=== PATIENT | female | born 1980 | race Caucasian/White ===

== ENCOUNTER 2021-04-07 15:20 | Inpatient (IN) | payer MEDICARE, MEDICAID ==
[2021-04-07] MEDS ORDERED: diphenhydrAMINE 25 MG CAP PO STA (18:48)
[2021-04-07] MEDS ORDERED: HYDROcodone/APAP 5-325MG 1 EACH TAB PO STA (18:48)
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
[2021-04-07 19:51] LABS: Appearance,Urine Clear (Clear); Bilirubin,Urine Negative (Negative); Blood,Urine Negative (Negative); Color,Urine Yellow; Glucose,Urine (UA) Negative (Negative); Ketones,Urine Negative (Negative); Leukocyte Esterase,Urine Negative (Negative); Nitrite,Urine Negative (Negative); Protein,Urine Negative (Negative); Specific Gravity,Urine 1.011 (1.001-1.035); Urobilinogen,Urine <2.0 mg/dL (<2.0)
[2021-04-07 19:55] LABS: Basophils % (A) 0 %; Eosinophils # (A) 0.1 k/uL (0-0.7); Eosinophils % (A) 1 %; HCT 41.5 % (34.0-46.0); HGB 14.1 gm/dL (11.4-16.0); Lymphocytes % (A) 27 %; MCH 30.9 pg (25.0-35.0); MCV 90.8 fL (80.0-100.0); Mean Platelet Volume 7.3; Monocytes # (A) 0.3 k/uL (0-1.0); Monocytes % (A) 4 %; Neutrophils # (A) 4.9 k/uL (1.3-7.7); Neutrophils % (A) 67 %; Platelet Count 399 k/uL (150-450); RBC 4.57 m/uL (3.80-5.40); RDW 14.1 % (11.5-15.5); WBC 7.3 k/uL (3.8-10.6)
[2021-04-07 20:01] LABS: ALT 56 U/L (4-34); AST 59 U/L (14-36); African American GFR (CKD) >90 (>60 ml/min/1.73 sqM); Alcohol <10 mg/dL; Alkaline Phosphatase 110 U/L (38-126); Amphetamine Screen,Urine Detected (NotDetected); Anion Gap 12 mmol/L; Barbiturate Screen,Urine Not Detected (NotDetected); Benzodiazepines Screen,Urine Not Detected (NotDetected); Blood Urea Nitrogen 15 mg/dL (7-17); Calcium 10.2 mg/dL (8.4-10.2); Carbon Dioxide 25 mmol/L (22-30); Chloride 103 mmol/L (98-107); Cocaine Screen,Urine Not Detected (NotDetected); Glucose 93 mg/dL (74-99); Methadone Screen, Urine Not Detected (NotDetected); Non-African American GFR(CKD) >90 (>60 ml/min/1.73 sqM); Opiate Screen,Urine Not Detected (NotDetected); Oxycodone Screen, Urine Not Detected (NotDetected); Phencyclidine Screen,Urine Not Detected (NotDetected); Sodium 140 mmol/L (137-145); Total Bilirubin 0.8 mg/dL (0.2-1.3); Total Protein 7.9 g/dL (6.3-8.2); Tricyclic Antidepressant,Urine Not Detected (NotDetected); Urn Cannabinoid Scrn Not Detected (NotDetected)
--- NOTE | 2021-04-07 20:17 | XR ---
EXAMINATION TYPE: XR mandible limited <4V DATE OF EXAM: 04/07/2021 COMPARISON: NONE HISTORY: Left sided jaw pain TECHNIQUE: 2 views FINDINGS: Mandibular ring is intact. Maxilla appears intact. I see no fracture. IMPRESSION: No fracture seen.
--- NOTE | 2021-04-07 20:18 | XR ---
EXAMINATION TYPE: XR Hip LT and AP Pelvis DATE OF EXAM: 04/07/2021 COMPARISON: NONE HISTORY: Hip pain TECHNIQUE: 3 views FINDINGS: Pelvic ring appears intact. Proximal left femur and hip joint appear normal. Hip joint spac es are normal. There is posterior fusion surgery in the lower lumbar spine. Sacroiliac joints are int act. IMPRESSION: Negative pelvis and left hip exam.
[2021-04-08] MEDS ORDERED: LORazepam 2 MG/ML INJ IM STA (01:09)
[2021-04-08] MEDS ORDERED: diphenhydrAMINE 50 MG/ML 1 ML VIAL IM STA (01:09)
[2021-04-08] MEDS ORDERED: diphenhydrAMINE 50 MG/ML 1 ML VIAL IVP STA (02:13)
[2021-04-08] MEDS ORDERED: LORazepam 2 MG/ML INJ IV STA (02:14)
[2021-04-08] MEDS ORDERED: MAG HYDROX/AL HYDROX/SIMETH 30 ML CUP PO PRN (02:25)
[2021-04-08] MEDS ORDERED: MAGNESIUM HYDROXIDE 2,400 MG/10 ML CUP PO PRN (02:25)
[2021-04-08] MEDS ORDERED: LORazepam 2 MG/ML INJ IM PRN (02:29)
[2021-04-08] MEDS ORDERED: OLANZapine 10 MG VIAL IM PRN (02:30)
[2021-04-08] MEDS ORDERED: OLANZapine 5 MG TAB PO PRN (02:30)
--- NOTE | 2021-04-08 04:33 | P.PN ---
Progress Note - Text Progress Note Date: 04/08/21 notified of new patient by RN, however, patient inappropriate for evaluation at this time due to acute psychosis and being medicated in the EC
[2021-04-08] MEDS: LEVOTHYROXINE 25 MCG TAB PO SCH (05:34)
[2021-04-08] MEDS ORDERED: NICOTINE 14MG/24HR PATCH TRANSDERM SCH (09:00)
--- NOTE | 2021-04-08 10:37 | P.HP ---
Psychiatric H&P - . H&P Date: 04/08/21 History & Physical: IDENTIFYING DATA: Pamela is a 40-year-old female admitted to the psychiatric unit involuntarily. A nurse practitioner completed a Petition read "Pamela is very paranoid. [facility] our trying to poison her and sex traffic her. Has been helping hot to [facility]. Preoccupied with health illness from years ago. HISTORY OF PRESENT ILLNESS: I reviewed the medical information interviewed the patient. She was difficult to interview and that her speech and thinking was digressive and circumstantial. Apparently the [facility] Department brought her to the [facility] [place] after she refused to leave a local hotel. She paid for one night at the [facility] and when she did leave after the second night management called the [facility] Department to remove her from the premises. She gave an alternate explanation of events where she had "overslept" and blamed the hotel management for not awaking her and notified her of the time when she should have checked out of the hotel. She is homeless and lives from [facility] to [facility]. Prior to coming to the [facility] she has [facility] for on specified period of time. She talked about looking for a women halfway in [facility] but left the halfway parking lot when she believed she saw a car that she believed belonged to a former girlfriend whom she alleged was involved with illegal activities. I was unable to obtain a clear and coherent explanation why she decided to drive from [facility] to the [facility]. She talked at length about inspecting the [place] along [facility] and discovering aa "suspicious" chain link fence. 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 She also talked about having contact with her knowledge of people who were involved in illegal activities. 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 She was preoccupied by her health and complained about several health related problems including pains and discomfort. Because of her somatic complaints she received a hip and shoulder x-ray when she was in the emergency department (both studies were normal). She digresses frequently to her past experience with mental health and mental health treatment and repeatly denied that she needed psychotropic medications. She alleged that she was diagnosed with lupus and explained that "people with lupus" cannot be prescribed psychotropic m edications. She denied experiencing auditory, visual or olfactory hallucinations. She denied rinsing thought insertion, thought broadcasting or thought control. PAST PSYCHIATRIC HISTORY: She is guarded about her past psychiatric treatment. She acknowledged several past psychiatric hospitalizations. She refused to talk about the hospitalizations are when she was last admitted to a psychiatric hospital. She meets with the psychiatrist in [facility], Jones Figueroa who prescribes her psychostimulants and Vistaril. She had 1 suicide attempt in 2003. Apparently she is been diagnosed with ADHD because her outpatient treatment and close prescription of psychostimulants. PAST MEDICAL HISTORY: I difficult time obtaining a coherent past medical history but she made reference to having multiple medical problems, multiple surgeries including nerve root block, bone marrow hip graft and and endometrial ablation. ALLERGIES: Ketorolac, acetaminophen, Haldol, hydrocodone, ibuprofen SUBSTANCE USE HISTORY: She denied history of substance use problems. She denied that she had been involved in substance abuse treatment. FAMILY PSYCHIATRIC/SUBSTANCE USE HISTORY: Family history of mental illness LEGAL HISTORY: She denied a history of legal problems. SOCIAL HISTORY: Her parents when she was 6 years old. She has 1 biological brother and 2 step siblings. She left school at some point during high school but eventually received a GED. She was in 2017. She has 2 children ages 23 and 13. She has no contact with her children and talked about "the Ship [employer]" taken the children from her. She is currently unemployed and receives Social Security disability. She has been homeless apparently since approximately 2017 and her 2019. MENTAL STATUS EXAM: She presented as a mildly obese casually groomed 40-year-old female who was pleasant on approach. She made eye contact and attended to the interview. She had no distinguishing features or prominent physical abnormalities. She had a blunted but bright facial expression. She is alert and oriented to person, place and time. She had no abnormality of psychomotor activity. His gait was slow but steady. Her speech was spontaneous with increased rate and rhythm. She had no articulation difficulties. Her affect was stable and appropriate. She denied suicidal ideation and wishes. She denied homicidal ideation. She denied feeling hopeless, helpless or worthless. She ruminated over her preoccupation with reporting illegal activities, disrupted interpersonal relationships and lack of stability in her life. Some of her descriptions were suggestive of ideas of reference. She is suspicious and guarded but did not express clear paranoid delusional beliefs. Her thinking was concrete and associations were slightly disorganized. Perseverative but demonstrated no neologisms or blocking. She denied hallucinations did not appear to be responding to internal stimuli. STRENGTHS: Stable income, resourceful, relatively good health, engagement with outpatient mental health services WEAKNESSES: Chronically mentally ill, lack of stable housing, lack of social support IMPRESSION: . She is a 40-year-old female admitted to the psychiatric unit involuntarily after the [employer] [facility] brought her to the hospital. Apparently she had refused to leave the hotel where she had stayed overnight. She was paranoid and preoccupied with her health and with reporting illegal and criminal activities. She was guarded about her history. Reports a long history of mental health treatment and apparent several involuntary psychiatric hospitalizations. She had some signs and symptoms of hypomania, comes guarded and suspicious but expressed no bizarre delusional beliefs. Her home medication illness includes both Adderall and Adderall XR and her UDS was positive for amphetamines. The differential diagnoses include a bipolar illness as well as a mood disorder secondary to amphetamine use. PRINCIPLE DIAGNOSIS: Unspecified mood disorder, rule out bipolar disorder, rule out amphetamine induced mood disorder, rule out amphetamine use disorder, ADHD by history RECOMMENDATION: Admitted voluntarily to the psychiatric unit. Safety precautions. Consult medicine for initial physical exam and medical history. 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 Obtain collateral information from family. Old prescriptions for Adderall. Continue Flexeril 10 mg 3 times a day when necessary for pain, Vistaril 50 mg 3 times a day when necessary for anxiety, Synthroid 25 g by mouth for hypothyroid. Ativan and/or Zyprexa when necessary for anxiety, agitation acute psychosis. Encourage participation in therapeutic groups and activities. Evaluate clinical status response to treatment daily basis. Allergies Allergy/AdvReac Type Severity Reaction Status Date / Time ketorolac [From Toradol] Allergy Rapid Verified 04/08/21 03:47 Heart Rate acetaminophen [From [place]] AdvReac Rash/Hives Verified 04/08/21 03:47 haloperidol [From Haldol] AdvReac Rapid Verified 04/08/21 03:47 Heart Rate hydrocodone [From [place]] AdvReac Rash/Hives Verified 04/08/21 03:47 ibuprofen [From Motrin] AdvReac Rash/Hives Verified 04/08/21 03:47 Vital Signs Temp 97.8 F 04/08/21 03:00 Pulse 102 H 04/08/21 03:00 Resp 16 04/08/21 03:00 BP 134/86 04/08/21 03:00 Pulse Ox 100 04/08/21 03:00 Intake & Output 04/07/21 04/08/21 04/08/21 18:59 06:59 18:59 Weight 65.771 kg 76 kg Laboratory Last Values WBC 7.3 k/uL (3.8-10.6) 04/07/21 19:39 RBC 4.57 m/uL (3.80-5.40) 04/07/21 19:39 Hgb 14.1 gm/dL (11.4-16.0) 04/07/21 19:39 Hct 41.5 % (34.0-46.0) 04/07/21 19:39 MCV 90.8 fL (80.0-100.0) 04/07/21 19:39 MCH 30.9 pg (25.0-35.0) 04/07/21 19:39 MCHC 34.0 g/dL (31.0-37.0) 04/07/21 19:39 RDW 14.1 % (11.5-15.5) 04/07/21 19:39 Plt Count 399 k/uL (150-450) 04/07/21 19:39 MPV 7.3 04/07/21 19:39 Neutrophils % 67 % 04/07/21 19:39 Lymphocytes % 27 % 04/07/21 19:39 Monocytes % 4 % 04/07/21 19:39 Eosinophils % 1 % 04/07/21 19:39 Basophils % 0 % 04/07/21 19:39 Neutrophils # 4.9 k/uL (1.3-7.7) 04/07/21 19:39 Lymphocytes # 2.0 k/uL (1.0-4.8) 04/07/21 19:39 Monocytes # 0.3 k/uL (0-1.0) 04/07/21 19:39 Eosinophils # 0.1 k/uL (0-0.7) 04/07/21 19:39 Basophils # 0.0 k/uL (0-0.2) 04/07/21 19:39 Carbon Monoxide, Quant 1.8 % (<10.0) 04/07/21 19:39 Sodium 140 mmol/L (137-145) 04/07/21 19:39 Potassium 4.0 mmol/L (3.5-5.1) 04/07/21 19:39 Chloride 103 mmol/L (98-107) 04/07/21 19:39 Carbon Dioxide 25 mmol/L (22-30) 04/07/21 19:39 Anion Gap 12 mmol/L 04/07/21 19:39 BUN 15 mg/dL (7-17) 04/07/21 19:39 Creatinine 0.68 mg/dL (0.52-1.04) 04/07/21 19:39 Est GFR (CKD-EPI)AfAm >90 (>60 ml/min/1.73 sqM) 04/07/21 19:39 Est GFR (CKD-EPI)NonAf >90 (>60 ml/min/1.73 sqM) 04/07/21 19:39 Glucose 93 mg/dL (74-99) 04/07/21 19:39 Calcium 10.2 mg/dL (8.4-10.2) 04/07/21 19:39 Total Bilirubin 0.8 mg/dL (0.2-1.3) 04/07/21 19:39 AST 59 U/L (14-36) H 04/07/21 19:39 ALT 56 U/L (4-34) H 04/07/21 19:39 Alkaline Phosphatase 110 U/L (38-126) 04/07/21 19:39 Total Protein 7.9 g/dL (6.3-8.2) 04/07/21 19:39 Albumin 5.0 g/dL (3.5-5.0) 04/07/21 19:39 Urine Color Yellow 04/07/21 19:39 Urine Appearance Clear (Clear) 04/07/21 19:39 Urine pH 6.0 (5.0-8.0) 04/07/21 19:39 Ur Specific [place] 1.011 (1.001-1.035) 04/07/21 19:39 Urine Protein Negative (Negative) 04/07/21 19:39 Urine Glucose (UA) Negative (Negative) 04/07/21 19:39 Urine Ketones Negative (Negative) 04/07/21 19:39 Urine Blood Negative (Negative) 04/07/21 19:39 Urine Nitrite Negative (Negative) 04/07/21 19:39 Urine Bilirubin Negative (Negative) 04/07/21 19:39 Urine Urobilinogen <2.0 mg/dL (<2.0) 04/07/21 19:39 Ur Leukocyte Esterase Negative (Negative) 04/07/21 19:39 Urine HCG, Qual Not Detected (Not Detectd) 04/07/21 19:39 Urine Opiates Screen Not Detected (NotDetected) 04/07/21 19:39 Ur Oxycodone Screen Not Detected (NotDetected) 04/07/21 19:39 Urine Methadone Screen Not Detected (NotDetected) 04/07/21 19:39 Ur Propoxyphene Screen Not Detected (NotDetected) 04/07/21 19:39 Ur Barbiturates Screen Not Detected (NotDetected) 04/07/21 19:39 U Tricyclic Antidepress Not Detected (NotDetected) 04/07/21 19:39 Ur Phencyclidine Scrn Not Detected (NotDetected) 04/07/21 19:39 Ur Amphetamines Screen Detected (NotDetected) H 04/07/21 19:39 U Methamphetamines Scrn Not Detected (NotDetected) 04/07/21 19:39 U Benzodiazepines Scrn Not Detected (NotDetected) 04/07/21 19:39 Urine Cocaine Screen Not Detected (NotDetected) 04/07/21 19:39 U Marijuana (THC) Screen Not Detected (NotDetected) 04/07/21 19:39 Serum Alcohol <10 mg/dL 04/07/21 19:39 04/08/21 10:02
[2021-04-08 14:30] LABS: Hemoglobin A1C 5.1 % (4.0-6.0)
[2021-04-08] MEDS: hydrOXYzine pamoate 25 MG CAP PO PRN ×2 (14:52→20:27)
[2021-04-08] MEDS: CYCLOBENZAPRINE 10 MG TAB PO PRN (14:54)
--- NOTE | 2021-04-08 16:23 | P.HPMEDMHU ---
History of Present Illness H&P Date: 04/08/21 Chief Complaint: paranoia Patient is a 40 yo CF with a hx of hypothyroidims, anemia, protein S deficiency, and multiple back surgeries who is currenly in the mental health unit for paranoia. Stone seen and examined at bedside. She has some nuasea depending on what room she is in and what the eneregy is like. No chest pain, SOB, or diarrhea. She realizes that some of her thoughts are probably not medical relavant and she stops her self. No chest pain, SOB, nausea, or vomiting. She speaks fo going ghost [employer] We discussed that she is mildly hyperthyroid and should not be taking 50 mcg of levothyroxine as needed. She should also have her liver enzymes rechecked. Pertinent positives and negatives as discussed in HPI, a complete review of sy stems was performed and all other systems are negative. General: non toxic, no distress, appears at stated age Derm: warm, dry Head: atraumatic, normocephalic, symmetric Eyes: EOMI, no lid lag, anicteric sclera, pupils equal round reactive to light ENT: Nose and ears atraumatic, no thrush, no pharyngeal erythema Neck: No thyromegaly, no cervical lymphadenopathy, trachea midline, supple Mouth: no lip lesion, mucus membranes moist Cardiovascular: S1S2 reg, no murmur, positive posterior tibial pulse bilateral, no edema, capillary refill less than 2 seconds Lungs: clear to ascultation bilateral, no ronchi, no rales, no wheeze, no accessory muscle use Abdominal: soft, nontender to palpation, no guarding, no appreciable organomegaly, normal bowel sounds Ext: no gross muscle atrophy, muscle strength muscle strength 5 out of 5 in all 4 extremities, no contractures Neuro: CN II-XI grossly intact, light touch intact all 4 extremities, finger to nose within normal limits, Psych: Alert, oriented, anxious Hypothyroidism - mildly over treated with depressed TSH - Levothyroxine 25 mcg daily, do not take 50mcg as needed. Transaminitis - recheck in 4 weeks SLE - outpatient follow-up ADHD with paranoia - your psych management will follow-up as needed Past Medical History Additional Past Medical History / Comment(s): hypothyroid, anemia, protein s deficiency, SLE History of Any Multi-Drug Resistant Organisms: None Reported Past Surgical History: Back Surgery Additional Past Surgical History / Comment(s): cystoscopy, endometrial ablation, deviated septum repain, nerve root block, bone marrow hip graft with metal poncho Past Psychological History: ADD/ADHD, Anxiety Smoking Status: Never smoker Past Alcohol Use History: None Reported Past Drug Use History: None Reported - Past Family History Mother Additional Family Medical History / Comment(s): thyroid disease Medications and Allergies Home Medications Medication Instructions Recorded Confirmed Type Acetaminophen [Tylenol] 325 mg PO DAILY PRN 04/07/21 04/07/21 History Cyclobenzaprine [Flexeril] 10 mg PO TID PRN 04/07/21 04/07/21 History Dextroamphetamine/Amphetamine 20 mg PO DAILY 04/07/21 04/07/21 History [Adderall Xr] Dextroamphetamine/Amphetamine 10 mg PO DAILY@1400 PRN 04/07/21 04/07/21 History [Adderall] Echinacea 400 mg PO DAILY 04/07/21 04/07/21 History Levothyroxine Sodium [Synthroid] 25 mcg PO DAILY 04/07/21 04/07/21 History hydrOXYzine pamoate [Vistaril] 50 mg PO TID PRN 04/07/21 04/07/21 History Allergies Allergy/AdvReac Type Severity Reaction Status Date / Time ketorolac [From Toradol] Allergy Rapid Verified 04/08/21 03:47 Heart Rate acetaminophen [From [place]] AdvReac Rash/Hives Verified 04/08/21 03:47 haloperidol [From Haldol] AdvReac Rapid Verified 04/08/21 03:47 Heart Rate hydrocodone [From [place]] AdvReac Rash/Hives Verified 04/08/21 03:47 ibuprofen [From Motrin] AdvReac Rash/Hives Verified 04/08/21 03:47 Physical Exam Osteopathic Statement: *. No significant issues noted on an osteopathic structural exam other than those noted in the History and Physical/Consult. Vitals: Vital Signs Temp Pulse Pulse Resp BP BP Pulse Ox 04/08/21 03:00 97.8 F 102 H 16 134/86 100 04/07/21 20:05 93 18 128/64 100 Intake and Output 04/08/21 04/08/21 04/08/21 06:59 14:59 22:59 Other: Weight 76 kg Cranial Nerve Examination - Cranial Nerves Cranial Nerve II- Optic: Intact Cranial Nerve III- Oculomotor: Intact Cranial Nerve IV- Trochlear: Intact Cranial Nerve V- Trigeminal: Intact Cranial Nerve - Abducens: Intact Cranial Nerve VII- Facial: Intact Cranial Nerve VIII- Auditory: Intact Cranial Nerve IX- Glossopharyngeal: Intact Cranial Nerve X- Vagus: Intact Cranial Nerve XI- Accessory: Intact Cranial Nerve XII- Hypoglossal: Intact Results CBC & Chem 7: 04/07/21 19:39 04/07/21 19:39 Labs: Abnormal Lab Results - Last 24 Hours (Table) 04/07/21 04/07/21 04/07/21 Range/Units 19:39 19:39 19:39 AST 59 H (14-36) U/L ALT 56 H (4-34) U/L TSH 0.198 L (0.465-4.680) mIU/L Ur Amphetamines Screen Detected H (NotDetected) Thrombosis Risk Factor Assmnt - Choose All That Apply Any of the Below Risk Factors Present?: No Other Risk Factors: No Other congenital or acquired thrombophilia - If yes, enter type in comment: No Thrombosis Risk Factor Assessment Level: Very Low Risk
[2021-04-09] MEDS: LEVOTHYROXINE 25 MCG TAB PO SCH (06:23)
[2021-04-09] MEDS: hydrOXYzine pamoate 25 MG CAP PO PRN ×3 (08:14→20:06)
[2021-04-09] MEDS: CYCLOBENZAPRINE 10 MG TAB PO PRN ×2 (08:14→18:38)
[2021-04-09 11:35] LABS: Chol/HDL Ratio 4.02; LDL Cholesterol,Calculated 108.6 mg/dL (0.0-131.0); VLDL Calculation 57.4 mg/dL (5.00-40.00)
--- NOTE | 2021-04-09 13:08 | P.PN ---
Progress Note - Text Progress Note Date: 04/09/21 Clinical Problems: Unspecified mood disorder, rule out bipolar disorder, rule out amphetamine induced mood disorder, rule out amphetamine use disorder, ADHD by history Interim history: I reviewed the medical record and interviewed the patient. She denied problems or concerns other than being in the hospital. She continues to maintain there was no reason for her to have been admitted to the hospital. She denied that she was paranoid or agitated. Unlike yesterday, she did not perseverate about her involvement in uncovering illegal activity or assisting authorities and investigation of criminal conduct. Since admission to the unit she has had no episodes of agitation, aggression or behavioral dyscontrol. She spends most of time alone in her room seldom participating in therapeutic groups or activities. She has not made statements suggesting paranoid ideation or paranoid delusional beliefs. She has not appeared to be responding to internal stimuli. Her UDS was positive for amphetamines. Medical consult appreciated. Mental status exam: She presented as a casually groomed 40-year-old female who was pleasant on approach. She made eye contact and attended to the interview. She had a blunted but bright facial expression. She is alert and oriented to person, place and time. She had slight psychomotor retardation but no abnormal involuntary movements. Her speech was spontaneous with normal rate, volume and rhythm. Her affect was blunted but stable and appropriate. She did not express suicidal ideation or wishes. She denied homicidal ideation. She denied feeling hopeless, helpless or worthless. She did not obsess or ruminate about investigation of criminal activity or illegal activities. She did not express ideas reference, paranoid ideation or delusions. Her thinking was concrete but his associations were coherent, logical and goal directed. She denied hallucinations did not appear to be responding to internal stimuli. Assessment: She is much less guarded and suspicious on admission. I suspect that her disorganized behavior and paranoia related to her amphetamine use but I can't exclude underlying mood disorder or personality disorder. Plan: Continue inpatient treatment. Safety precautions. Continue Vistaril 50 mg 3 times a day when necessary for anxiety and Zyprexa 5 mg IM or by mouth when necessary for agitation and aggression acute psychosis. Encourage participation in therapeutic groups and activities. Evaluate clinical status response to treatment on a daily basis.
[2021-04-10] MEDS: LEVOTHYROXINE 25 MCG TAB PO SCH (06:30)
[2021-04-10] MEDS: hydrOXYzine pamoate 25 MG CAP PO PRN ×2 (08:33→16:12)
[2021-04-10] MEDS: CYCLOBENZAPRINE 10 MG TAB PO PRN ×2 (08:33→20:09)
--- NOTE | 2021-04-10 12:08 | P.PN ---
Progress Note - Text Progress Note Date: 04/10/21 Interval History: Patient was seen resting in bed and was directable and agreeable to speak with principal technical writer in the office. Patient is currently endorsing significant delusional thoughts. The patient is unable to provide a clear and coherent history and appears to be pressured in her speech jumping from topic to topic. The patient reports that she was brought to the hospital by the business services manager in order to get evaluated for "poisoning" and she believed that she was being poisoned from noxious fumes and gases in her hotel room. The patient reports that this has happened before and that is why she is expressing significant concern. Patient was then admitted on to the psychiatric unit under petition and certification as a patient continued to endorse other delusional thoughts as well including the believed that she was sex-trafficked and that she has been working with multiple federal agencies as well as [employer] regarding a suspicious chain link fence along the [place]. Respiratory EPS report, the patient did report that she has been petitioned and certified numerous times from other psychiatric units. The patient vehemently denies any need for psychiatric treatment and states that she cannot take any psychotropic medications because she has lupus and that this w ould cause her lupus to flareup. She is denying any suicidal or homicidal ideation, intention, and/or plan. Mental Status Exam: General Appearance: Patient appears to be stated age is alert, directable, and cooperative. Good hygiene and grooming. Behavior: Psychomotor activity is elevated. Patient is unable to sit still. Patient is also pacing the room. Speech: Patient's speech is pressured, nonlinear, difficult to follow at times. Mood/Affect: Mood is angry and upset. Affect is congruent and expansive. Suicidality/Homicidality: Patient denies having any suicidal or homicidal ideation intent or plan. Perceptions: Patient denies any visual hallucinations and denies any auditory hallucinations Though content/process: The patient is endorsing numerous delusional thoughts and paranoia. Flight of ideas evident. Memory and concentration: AOX3, grossly intact for the purposes of this session Judgment and insight: Very poor Vital Signs Temp 97.2 F L 04/10/21 06:31 Pulse 72 04/10/21 06:31 Resp 18 04/10/21 06:31 BP 97/54 04/10/21 06:31 Pulse Ox 96 04/09/21 06:23 Intake & Output 04/09/21 04/10/21 04/10/21 18:59 06:59 18:59 Weight 76.1 kg Assessment Psychosis, unspecified Rule out schizoaffective disorder, bipolar type versus bipolar disorder, type I, with psychotic features Rule out amphetamine induced psychosis Plan: -Patient continues to meet criteria for inpatient psychiatric admission for symptom stabilization and safety. -The patient was given the opportunity to sign in voluntarily but is now refusing medications, treatment, or believes that she has psychiatric illness. We will pursue a petition and clinical certificate for this patient. -Medications: We will likely wait a court order for medications as the patient states that she will refuse any medications at this time. I will order Invega 3 mg at bedtime should the patient just to be adherent with treatment. Plan is to transition the patient to long-acting injectable Invega [place]. -When necessary Ativan and Haldol for agitation/aggression. -NRT - nicotine patch -SW on board for discharge planning. Encouraged the patient to participate in milieu.
[2021-04-10] MEDS: LORazepam 1 MG TAB PO PRN (20:10)
[2021-04-10] MEDS ORDERED: PALIPERIDONE 3 MG TAB.ER.24 PO SCH (21:00)
[2021-04-11] MEDS: LEVOTHYROXINE 25 MCG TAB PO SCH (06:19)
[2021-04-11] MEDS: CYCLOBENZAPRINE 10 MG TAB PO PRN ×2 (11:03→20:18)
[2021-04-11] MEDS: hydrOXYzine pamoate 25 MG CAP PO PRN ×2 (11:03→20:17)
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
[2021-04-11] MEDS ORDERED: PALIPERIDONE 6 MG TAB.ER.24 PO SCH (21:00)
[2021-04-12] MEDS: LEVOTHYROXINE 25 MCG TAB PO SCH (06:50)
[2021-04-12] MEDS: hydrOXYzine pamoate 25 MG CAP PO PRN ×2 (11:22→20:40)
--- NOTE | 2021-04-12 11:35 | P.PN ---
Progress Note - Text Progress Note Date: 04/12/21 Interval History: Patient was seen resting in bed and was directable and agreeable to be inter viewed in her room. The patient is currently not reporting any suicidal or homicidal ideation, intention, and/or plan. She is not reporting any auditory or visual hallucinations. She denying any overt delusional thought content when explored, the patient continues to believe that her numerous legal and criminal cases that she is contributing information to. When this provider asked again if the patient has any agent that she is particularly working with, the patient only replies "go look for my phone. I have all the evidence right there but you guys refuse to listen." She then abruptly terminates the interview. Mental Status Exam: General Appearance: Patient appears to be stated age is alert, directable, and cooperative. Good hygiene and grooming. Behavior: Psychomotor activity is normal. Eye contact is appropriate. Speech: Patient's speech is less pressured pressured and more linear today. Mood/Affect: Mood is irritable. Affect is labile and expansive Suicidality/Homicidality: Patient denies having any suicidal or homicidal ideation intent or plan. Perceptions: Patient denies any visual hallucinations and denies any auditory hallucinations Though content/process: Patient continues to endorse delusional thought content. Thought process appears to be illogical linear today. Memory and concentration: AOX3, grossly intact for the purposes of this session Judgment and insight: Very poor Vital Signs Temp 98.1 F 04/11/21 06:25 Pulse 70 04/11/21 06:25 Resp 18 04/11/21 06:25 BP 91/55 04/11/21 06:25 Pulse Ox 97 04/11/21 06:25 Assessment Psychosis, unspecified Rule out schizoaffective disorder, bipolar type versus bipolar disorder, type I, with psychotic features Rule out amphetamine induced psychosis Plan: -Patient continues to meet criteria for inpatient psychiatric admission for symptom stabilization and safety. Petition and clinical certificates have been filed. -Medications: Increase Invega to 9 mg by mouth at bedtime for mood stabilization/psychosis. Plan is to transition the patient to long-acting injectable invega sustenna. -When necessary Ativan and Haldol for agitation/aggression. -NRT - nicotine patch -SW on board for discharge planning. Encouraged the patient to participate in milieu.
[2021-04-12] MEDS: CYCLOBENZAPRINE 10 MG TAB PO PRN (15:50)
[2021-04-12] MEDS: PALIPERIDONE 3 MG TAB.ER.24 PO SCH (20:39)
[2021-04-13] MEDS: LEVOTHYROXINE 25 MCG TAB PO SCH (06:35)
[2021-04-13] MEDS: hydrOXYzine pamoate 25 MG CAP PO PRN ×2 (10:00→17:21)
[2021-04-13] MEDS: CYCLOBENZAPRINE 10 MG TAB PO PRN ×2 (10:00→20:29)
--- NOTE | 2021-04-13 11:00 | P.PN ---
Progress Note - Text Progress Note Date: 04/13/21 Interval History: Patient was seen resting in bed and was directable and agreeable to be inter viewed in her room. The patient has been adherent to her medications. She is not reporting any suicidal or homicidal ideation, intention, and/or plan. She is not reporting any auditory or visual agents. She denies any paranoia or other delusions. When discussing that we plan to transition the patient to a long-acting injectable medication such as Invega Sustenna, the patient becomes very agitated and angry. The patient states that she has lupus and that these medications cause her lupus to "flare up. The patient is unable to provide any details of what a "flare up" looks like. She reports only "makes my muscles hurt." She continues to demand that a blind teacher is employed by the psychiatric unit. She was informed that she did defer mental health court. She states "you guys don't care so why should we even talk?" She terminated the interview. Mental Status Exam: General Appearance: Patient appears to be stated age is alert, directable, and cooperative. Good hygiene and grooming. Behavior: Psychomotor activity is normal. Eye contact is appropriate. Speech: Patient's speech is less pressured. Mood/Affect: Mood is irritable. Affect is labile and irate. Suicidality/Homicidality: Patient denies having any suicidal or homicidal ideation intent or plan. Perceptions: Patient denies any visual hallucinations and denies any auditory hallucinations Though content/process: Patient continues to endorse delusional thought content. Thought process is illogical. Memory and concentration: AOX3, grossly intact for the purposes of this session Judgment and insight: Very poor Vital Signs Temp 97.3 F L 04/13/21 06:44 Pulse 74 04/13/21 06:44 Resp 14 04/13/21 06:44 BP 108/65 04/13/21 06:44 Pulse Ox 97 04/11/21 06:25 Assessment Psychosis, unspecified Rule out schizoaffective disorder, bipolar type versus bipolar disorder, type I, with psychotic features Rule out amphetamine induced psychosis Plan: -Patient continues to meet criteria for inpatient psychiatric admission for symptom stabilization and safety. Petition and clinical certificates have been filed. -Medications: Continue invega 9 mg by mouth at bedtime for mood stabilization/psychosis. Plan is to transition the patient to long-acting injectable invega sustenna tomorrow. Consider augmentation with a mood stabilizer like lithium or depakote. -When necessary Ativan and Haldol for agitation/aggression. -NRT - nicotine patch -SW on board for discharge planning. Encouraged the patient to participate in milieu.
[2021-04-13] MEDS: PALIPERIDONE 3 MG TAB.ER.24 PO SCH (20:29)
[2021-04-14] MEDS: LEVOTHYROXINE 25 MCG TAB PO SCH (06:06)
[2021-04-14] MEDS ORDERED: PALIPERIDONE IM 234 MG/1.5 ML SYG IM STA (10:23)
--- NOTE | 2021-04-14 10:47 | P.PN ---
Progress Note - Text Progress Note Date: 04/14/21 Interval History: Patient was seen resting in bed and was directable and agreeable to be intervi ewed in the office. The patient is currently not endorsing any suicidal or homicidal ideation, intention, and/or plan. She is not reporting any auditory or visual hallucinations. She reports no paranoia or other delusions today. She makes no mention of government agencies or sex trafficking today. She has been adherent with her medications and is not endorsing any side effects. She has been active in the [facility]. She denies any issues regarding sleep or appetite. Mental Status Exam: General Appearance: Patient appears to be stated age is alert, directable, and cooperative. Good hygiene and grooming. Behavior: Psychomotor activity is normal. Eye contact is appropriate. Speech: Patient's speech is spontaneous, with normal rate, tone, volume and fluency. Mood/Affect: Mood is "good." Affect is constricted but otherwise euthymic. Suicidality/Homicidality: Patient denies having any suicidal or homicidal ideation intent or plan. Perceptions: Patient denies any visual hallucinations and denies any auditory hallucinations Though content/process: No delusional thought content is endorsed. Thought process appears linear and logical. Memory and concentration: AOX3, grossly intact for the purposes of this session Judgment and insight: Mildly improving. Vital Signs Temp 97.9 F 04/14/21 06:25 Pulse 69 04/14/21 06:25 Resp 14 04/14/21 06:25 BP 102/60 04/14/21 06:25 Pulse Ox 97 04/11/21 06:25 Assessment Psychosis, unspecified Rule out schizoaffective disorder, bipolar type versus bipolar disorder, type I, with psychotic features Rule out amphetamine induced psychosis Plan: -Patient continues to meet criteria for inpatient psychiatric admission for symptom stabilization and safety. Petition and clinical certificates have been filed. Patient deferred mental health court. -Medications: Start Invega sustenna 234 mg IM today. Continue invega 3 mg by mouth at bedtime for mood stabilization/psychosis. Will administer second loading dose invega sustenna 156 mg IM on 04/18/2021. -When necessary Ativan and Haldol for agitation/aggression. -NRT - nicotine patch -SW on board for discharge planning. Encouraged the patient to participate in [employer]
[2021-04-14] MEDS: CYCLOBENZAPRINE 10 MG TAB PO PRN (18:30)
[2021-04-14] MEDS: hydrOXYzine pamoate 25 MG CAP PO PRN (18:30)
[2021-04-14] MEDS: PALIPERIDONE 3 MG TAB.ER.24 PO SCH (20:40)
[2021-04-15] MEDS: LEVOTHYROXINE 25 MCG TAB PO SCH (06:53)
[2021-04-15] MEDS: hydrOXYzine pamoate 25 MG CAP PO PRN (12:39)
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
[2021-04-15] MEDS: CYCLOBENZAPRINE 10 MG TAB PO PRN (17:59)
[2021-04-15] MEDS: PALIPERIDONE 3 MG TAB.ER.24 PO SCH (20:48)
[2021-04-15] MEDS: LORazepam 1 MG TAB PO PRN (20:57)
[2021-04-16] MEDS: LEVOTHYROXINE 25 MCG TAB PO SCH (06:58)
[2021-04-16 09:26] LABS: T4, Free (Free Thyroxine) 1.11 ng/dL (0.78-2.19)
[2021-04-16 09:53] VITALS: RESP 16
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
[2021-04-16] MEDS: hydrOXYzine pamoate 25 MG CAP PO PRN (14:18)
[2021-04-16] MEDS: CYCLOBENZAPRINE 10 MG TAB PO PRN (18:12)
[2021-04-16] MEDS: LORazepam 1 MG TAB PO PRN (20:07)
[2021-04-16] MEDS: PALIPERIDONE 3 MG TAB.ER.24 PO SCH (20:07)
[2021-04-17] MEDS: LEVOTHYROXINE 25 MCG TAB PO SCH (05:53)
--- NOTE | 2021-04-17 09:51 | P.PN ---
Progress Note - Text Progress Note Date: 04/17/21 Interval History: Patient was seen resting in bed and was directable and agreeable to be interv iewed in her room. The patient is reporting that she is feeling "okay." She is currently not reporting any suicidal or homicidal ideation, intention, and/or plan. She is not reporting any auditory or visual hallucinations. The patient is not forthcoming with any paranoid delusions or bizarre delusional thought content today. With the medications is not endorsing any significant side effects. She does report that she expresses some muscle tightness around her calves but attributes this to her constant pacing of the hallways. Patient is uncertain of where she will be going after discharge. She does understand that she will be receiving the second dose Invega Sustenna tomorrow due to her history of nonadherence with treatment. It is also concerning that the patient has been transient in terms of housing and is unable to follow-up appropriately with scheduled appointments. She is agreeable to being on the injectible to address this. Mental Status Exam: General Appearance: Patient appears to be stated age is alert, directable, and cooperative. Good hygiene and grooming. Behavior: Psychomotor activity is normal. Eye contact is appropriate. Speech: Patient's speech is spontaneous, with normal rate, tone, volume and fluency. Mood/Affect: Mood is "Doing alright." Affect is euthymic with appropriate range. Suicidality/Homicidality: Patient denies having any suicidal or homicidal ideation intent or plan. Perceptions: Patient denies any visual hallucinations and denies any auditory hallucinations Though content/process: No delusional thought content is endorsed. Thought process appears linear and logical. Memory and concentration: AOX3, grossly intact for the purposes of this session Judgment and insight: Mildly improving. Vital Signs Temp 97.3 F L 04/17/21 06:08 Pulse 84 04/17/21 06:08 Resp 16 04/17/21 06:08 BP 144/85 04/17/21 06:08 Pulse Ox 100 04/17/21 06:08 Assessment Psychosis, unspecified Rule out schizoaffective disorder, bipolar type versus bipolar disorder, type I, with psychotic features Rule out amphetamine induced psychosis Plan: -Patient continues to meet criteria for inpatient psychiatric admission for sym ptom stabilization and safety. Petition and clinical certificates have been filed. Patient deferred mental health court. -Medications: Start Invega sustenna 234 mg IM administered on 04/14/2021. Continue invega 3 mg by mouth at bedtime for mood stabilization/psychosis. Will administer second loading dose invega sustenna 156 mg IM tomorrow (4 days after initial dose as per administration guidelines for invega sustenna). Patient has a transient history and there is concern she would likely not follow-up.Goal is to ensure medication adherence to the best of our ability to prevent recidivism for this patient. -When necessary Ativan and Haldol for agitation/aggression. -NRT - nicotine patch -SW on board for discharge planning. Encouraged the patient to participate in milieu.
[2021-04-17] MEDS: hydrOXYzine pamoate 25 MG CAP PO PRN ×2 (10:19→18:07)
[2021-04-17] MEDS: CYCLOBENZAPRINE 10 MG TAB PO PRN ×2 (11:37→22:28)
[2021-04-17] MEDS: PALIPERIDONE 3 MG TAB.ER.24 PO SCH (20:05)
[2021-04-17] MEDS: LORazepam 1 MG TAB PO PRN (20:06)
[2021-04-17] MEDS: ACETAMINOPHEN TAB 325 MG TAB PO PRN (21:22)
[2021-04-18] MEDS: LEVOTHYROXINE 25 MCG TAB PO SCH (06:38)
[2021-04-18] MEDS ORDERED: PALIPERIDONE IM 156 MG/ML SYG IM STA (09:08)
[2021-04-18] MEDS: hydrOXYzine pamoate 25 MG CAP PO PRN ×2 (10:23→20:28)
[2021-04-18] MEDS: CYCLOBENZAPRINE 10 MG TAB PO PRN ×2 (10:23→22:54)
--- NOTE | 2021-04-18 10:52 | P.PN ---
Progress Note - Text Progress Note Date: 04/18/21 Interval History: Patient was seen resting in bed and was directable and agreeable to be interv iewed in her room. The patient was that she is feeling good. She is not endorsing any suicidal or homicidal ideation, intention, and/or plan. She is not reporting any auditory or visual hallucinations. Denying any paranoia or delusions. The patient is not forthcoming with any delusions today. She does not make any mention of any sex trafficking or any government agencies that she has been working with. She has been adherent with the medications and is not endorsing any significant side effects at this time. The patient does acknowledge that she will be receiving a second loading dose of Invega today. In regards to her discharge disposition, the patient states that she is uncertain where she will be going after discharge. She reports that her primary goal after discharge is to find her vehicle. Mental Status Exam: General Appearance: Patient appears to be stated age is alert, directable, and cooperative. Good hygiene and grooming. Behavior: Psychomotor activity is normal. Eye contact is appropriate. Speech: Patient's speech is spontaneous, with normal rate, tone, volume and fluency. Mood/Affect: Mood is "good" Affect is euthymic with appropriate range. Suicidality/Homicidality: Patient denies having any suicidal or homicidal ideation intent or plan. Perceptions: Patient denies any visual hallucinations and denies any auditory hallucinations Though content/process: No delusional thought content is endorsed. Thought process appears linear and logical. Memory and concentration: AOX3, grossly intact for the purposes of this session Judgment and insight: Mildly improving. Vital Signs Temp 97.3 F L 04/18/21 00:09 Pulse 117 H 04/18/21 00:09 Resp 16 04/18/21 00:09 BP 111/63 04/18/21 00:09 Pulse Ox 100 04/17/21 06:08 Assessment Psychosis, unspecified Rule out schizoaffective disorder, bipolar type versus bipolar disorder, type I, with psychotic features Rule out amphetamine induced psychosis Plan: -Patient continues to meet criteria for inpatient psychiatric admission for symptom stabilization and safety. Petition and clinical certificates have been filed. Patient deferred mental health court. -Medications: Start Invega sustenna 234 mg IM administered on 04/14/2021. Invega Sustenna 156 mg IM to be administered today on 04/18/2021. Patient has a transient history and there is concern she would likely not follow -up. oal is to ensure medication adherence to the best of our ability to prevent recidivism for this patient. -When necessary Ativan and Haldol for agitation/aggression. -NRT - nicotine patch -SW on board for discharge planning. Encouraged the patient to participate in milieu.
[2021-04-18] MEDS: ACETAMINOPHEN TAB 325 MG TAB PO PRN ×2 (13:31→22:54)
[2021-04-19] MEDS: LEVOTHYROXINE 25 MCG TAB PO SCH (06:06)
[2021-04-19 07:09] VITALS: BP 97/53; PULSE 70; TEMP 97.7
[2021-04-19] MEDS: hydrOXYzine pamoate 25 MG CAP PO PRN (08:41)
--- NOTE | 2021-04-19 12:00 | P.DS ---
Providers Date of admission: 04/08/21 02:22 Expected date of discharge: 04/19/21 Attending physician: Brennen Romano MD Consults: 04/08/21 02:25 Consult Physician Routine Consulting Provider: Sandra Domínguez Consult Reason/Comments: H&P for mental health admission Do you want consulting provider notified?: Yes Primary care physician: Stated None - Discharge Diagnosis(es) (1) Schizoaffective disorder, bipolar type Current Visit: Yes Status: Acute Priority: High Hospital Course: Admission HPI: Initial psychiatric evaluation was completed on 04/08/[address] Garcia who wrote: "Pamela is a 40-year-old female admitted to the psychiatric unit involuntarily. A nurse practitioner completed a Petition read "Pamela is very paranoid. Believes medical staff and staff at [facility] she has been staying at our trying to poison her and sex traffic her. Has been helping [facility] to [facility]. Preoccupied with health illness from years ago. I reviewed the medical information interviewed the patient. She was difficult to interview and that her speech and thinking was digressive and circumstantial. Apparently the [employer] brought her to the [facility] after she refused to leave a local hotel. She paid for one night at the hot and when she did leave after the second night management called the [facility] to remove her from the premises. She gave an alternate explanation of events where she had "overslept" and blamed the hotel management for not awaking her and notified her of the time when she should have checked out of the hotel. She is homeless and lives from [facility] to [facility]. Prior to coming to the [facility] she has stayed at the [facility] for on specified period of time. She talked about looking for a women chcf in [facility] but left the chcf parking lot when she believed she saw a car that she believed belonged to a former girlfriend whom she alleged was involved with illegal activities. I was unable to obtain a clear and coherent explanation why she decided to drive from [facility] to the [facility]. She talked at length about inspecting the [place] [facility] and discovering aa "suspicious" chain link fence. 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 She also talked about having contact with her knowledge of people who were involved in illegal activities. 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 She was p reoccupied by her health and complained about several health related problems including pains and discomfort. Because of her somatic complaints she received a hip and shoulder x-ray when she was in the emergency department (both studies were normal). She digresses frequently to her past experience with mental health and mental health treatment and repeatly denied that she needed psychotropic medications. She alleged that she was diagnosed with lupus and explained that "people with lupus" cannot be prescribed psychotropic medications. She denied experiencing auditory, visual or olfactory seymour llucinations. She denied rinsing thought insertion, thought broadcasting or thought control. She is guarded about her past psychiatric treatment. She acknowledged several past psychiatric hospitalizations. She refused to talk about the hospitalizations are when she was last admitted to a psychiatric hospital. She meets with the psychiatrist in [facility], Jones Figueroa who prescribes her psychostimulants and Vistaril. She had 1 suicide attempt in 2003. Apparently she is been diagnosed with ADHD because her outpatient treatment and close prescription of psychostimulants." Hospital course: Upon admission to the unit patient was initially presenting as fearful, agitated, and endorsing significant paranoid delusions, believing that people were trying to sex traffic her. 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 When evaluated by this provider, the patient did present with significant psychosis and mood lability. She is often very angry and would terminate interviews early and was difficult to redirect. The patient was started on Invega in order to address her psychotic symptoms. The patient was adherent with this medication. A second clinical certificate was filled out due to concern that the patient would be nonadherent with treatment and that she was actively psychotic. The patient's Invega was gradually titrated to final dose of 9 mg daily and the patient ended up deferring mental health court and agreeing to treatment. The patient tolerated the antipsychotic medication well. Over the course of the hospital physician, the patient gradually improved in regards to her psychotic symptoms and became less forthcoming and less fearful regarding her paranoia and her other bizarre delusions that she was previously endorsing. The patient was agreeable to transitioning to the long-acting injectable Invega Sustenna. The patient also displayed significant improvement in regards to her behavior and mood. She became more cooperative and compliant with treatment and more friendly on approach. The patient was given the second loading dose of Invega Sustenna on 04/18/2021. On the day of discharge, the patient is not endorsing any suicidal or homicidal ideation, intention, and/or plan. She is not reporting any auditory or visualizations. She is not reporting any paranoia or other delusions. The patient does make odd comments regarding her general health stating "her fallopian tubes are fine with this medication" and how her health insurance can provider her rides. She is agreeable to a chcf referral. She was conunseled on her medications and the importance on adherence and appropriate follow-up. She was also counseled on substances and importance on avoiding substances including adderall. Overall the patient has improved significantly and does not meed criteria for inpatient hospitalization and therefore was subsequently discharged. Mental status exam: General Appearance: Patient appears to be stated age is alert, pleasant, frie ndly, and cooperative. Patient is in no acute distress and has fair hygiene and grooming Behavior: Patient is calmly seated without any agitated behavior. Psychomotor activity is normal. Speech: Patient's speech is fluent and nonpressured. Spontaneous, with normal, rate, tone and volume. Mood/Affect: Patient reports their mood is "feeling really good!", affect is congruent and bright. Suicidality/Homicidality: Patient denies having any suicidal or homicidal ideation intent or plan. Perceptions: Patient denies any auditory or visual hallucinations. Though content/process: There is no evidence of any delusional thought content and thought process is linear and goal-directed. Memory and concentration: AOX3, grossly intact for the purposes of this session. Can spell "WORLD" backwards correctly. Judgment and insight: Improved Vital Signs Temp 97.7 F 04/19/21 06:55 Pulse 70 04/19/21 06:55 Resp 16 04/19/21 06:55 BP 97/53 04/19/21 06:55 Pulse Ox 100 04/17/21 06:08 Impression: Schizoaffective disorder, bipolar type Plan: -Continue with discharge today as patient has improved and stabilized psychiatrically and is not currently an imminent threat to herself and/or others. Patient will remain at chronically elevated risk for harm to self and/or others due to her lack of stable housing. -Continue medications: Invega Sustenna 156 mg IM every month for psychosis/mood stabilization. Last dose given on 04/18/2021. Next dose due on 05/14/2021. Vistaril 25 mg twice daily as needed for anxiety -Patient was counseled on the need for medication compliance and appropriate follow-up at mental health and also primary care for medical issues. Patient verbalized understanding and agreed. -Social work to arrange for and conduct family meeting to ensure safety upon discharge and answer any questions/concerns. Social work also to arrange for patients follow up appointments with [facility] for psychiatric care along with follow up with primary care provider. -Patient counseled on abstaining from recreational drugs and marijuana and alcohol. Was informed/educated on the adverse effects on their physical and mental health. Patient verbally agreed and understood. -Patient was instructed to return to the hospital or seek immediate medical care if their psychiatric or medical symptoms do worsen or reoccur. -Psychoeducation and supportive therapy provided to patient. Risks and benefits of pharmacological treatment versus the risks and benefits of nontreatment weight and discussed. Informed consent discussion held. Common side effects of psychotropics discussed such as, but not limited to headache, GI disturbance, sexual dysfunction, movement disorders, sedation, and orthostatic hypotension. Life threatening and blackbox warnings of prescribed medications also discussed. Potential risks of operating a vehicle or heavy machinery discussed with patient at length. Advised on importance of compliance and a reliable and responsible manner. Patient advised to review FDA consumer labeling of all medications prior to taking. Patient verbalized understanding of potential risks, and agrees with current treatment plan. Patient advised to medically contact physician/emergency personnel if any acute changes in condition occur. Allergies Allergy/AdvReac Type Severity Reaction Status Date / Time ketorolac [From Toradol] Allergy Rapid Verified 04/09/21 20:37 Heart Rate acetaminophen [From [place]] AdvReac Rash/Hives Verified 04/09/21 20:37 haloperidol [From Haldol] AdvReac Rapid Verified 04/09/21 20:37 Heart Rate hydrocodone [From [place]] AdvReac Rash/Hives Verified 04/09/21 20:37 ibuprofen [From Motrin] AdvReac Rash/Hives Verified 04/09/21 20:37 Laboratory Results WBC 7.3 k/uL (3.8-10.6) 04/07/21 19:39 RBC 4.57 m/uL (3.80-5.40) 04/07/21 19:39 Hgb 14.1 gm/dL (11.4-16.0) 04/07/21 19:39 Hct 41.5 % (34.0-46.0) 04/07/21 19:39 MCV 90.8 fL (80.0-100.0) 04/07/21 19:39 MCH 30.9 pg (25.0-35.0) 04/07/21 19:39 MCHC 34.0 g/dL (31.0-37.0) 04/07/21 19:39 RDW 14.1 % (11.5-15.5) 04/07/21 19:39 Plt Count 399 k/uL (150-450) 04/07/21 19:39 MPV 7.3 04/07/21 19:39 Neutrophils % 67 % 04/07/21 19:39 Lymphocytes % 27 % 04/07/21 19:39 Monocytes % 4 % 04/07/21 19:39 Eosinophils % 1 % 04/07/21 19:39 Basophils % 0 % 04/07/21 19:39 Neutrophils # 4.9 k/uL (1.3-7.7) 04/07/21 19:39 Lymphocytes # 2.0 k/uL (1.0-4.8) 04/07/21 19:39 Monocytes # 0.3 k/uL (0-1.0) 04/07/21 19:39 Eosinophils # 0.1 k/uL (0-0.7) 04/07/21 19:39 Basophils # 0.0 k/uL (0-0.2) 04/07/21 19:39 Carbon Monoxide, Quant 1.8 % (<10.0) 04/07/21 19:39 Sodium 140 mmol/L (137-145) 04/07/21 19:39 Potassium 4.0 mmol/L (3.5-5.1) 04/07/21 19:39 Chloride 103 mmol/L (98-107) 04/07/21 19:39 Carbon Dioxide 25 mmol/L (22-30) 04/07/21 19:39 Anion Gap 12 mmol/L 04/07/21 19:39 BUN 15 mg/dL (7-17) 04/07/21 19:39 Creatinine 0.68 mg/dL (0.52-1.04) 04/07/21 19:39 Est GFR (CKD-EPI)AfAm >90 (>60 ml/min/1.73 sqM) 04/07/21 19:39 Est GFR (CKD-EPI)NonAf >90 (>60 ml/min/1.73 sqM) 04/07/21 19:39 Glucose 93 mg/dL (74-99) 04/07/21 19:[address] Glu mg/dL 100 04/07/21 19:39 Hemoglobin A1c 5.1 % (4.0-6.0) 04/07/21 19:39 Calcium 10.2 mg/dL (8.4-10.2) 04/07/21 19:39 Total Bilirubin 0.8 mg/dL (0.2-1.3) 04/07/21 19:39 AST 59 U/L (14-36) H 04/07/21 19:39 ALT 56 U/L (4-34) H 04/07/21 19:39 Alkaline Phosphatase 110 U/L (38-126) 04/07/21 19:39 Total Protein 7.9 g/dL (6.3-8.2) 04/07/21 19:39 Albumin 5.0 g/dL (3.5-5.0) 04/07/21 19:39 Triglycerides 287.0 mg/dL (0.0-149.0) H 04/07/21 19:39 Cholesterol 221 mg/dL (0-200) H 04/07/21 19:39 LDL Cholesterol, Calc 108.6 mg/dL (0.0-131.0) 04/07/21 19:39 VLDL Cholesterol, Calc 57.40 mg/dL (5.00-40.00) H 04/07/21 19:39 HDL Cholesterol 55.0 mg/dL (40.0-60.0) 04/07/21 19:39 Cholesterol/HDL Ratio 4.02 04/07/21 19:39 TSH 0.198 mIU/L (0.465-4.680) L 04/07/21 19:39 Free T4 1.11 ng/dL (0.78-2.19) 04/16/21 06:48 Free T3 pg/mL 4.0 pg/ml (2.8-5.3) 04/16/21 06:48 Urine Color Yellow 04/07/21 19:39 Urine Appearance Clear (Clear) 04/07/21 19:39 Urine pH 6.0 (5.0-8.0) 04/07/21 19:39 Ur Specific [place] 1.011 (1.001-1.035) 04/07/21 19:39 Urine Protein Negative (Negative) 04/07/21 19:39 Urine Glucose (UA) Negative (Negative) 04/07/21 19:39 Urine Ketones Negative (Negative) 04/07/21 19:39 Urine Blood Negative (Negative) 04/07/21 19:39 Urine Nitrite Negative (Negative) 04/07/21 19:39 Urine Bilirubin Negative (Negative) 04/07/21 19:39 Urine Urobilinogen <2.0 mg/dL (<2.0) 04/07/21 19:39 Ur Leukocyte Esterase Negative (Negative) 04/07/21 19:39 Urine HCG, Qual Not Detected (Not Detectd) 04/07/21 19:39 Urine Opiates Screen Not Detected (NotDetected) 04/07/21 19:39 Ur Oxycodone Screen Not Detected (NotDetected) 04/07/21 19:39 Urine Methadone Screen Not Detected (NotDetected) 04/07/21 19:39 Ur Propoxyphene Screen Not Detected (NotDetected) 04/07/21 19:39 Ur Barbiturates Screen Not Detected (NotDetected) 04/07/21 19:39 U Tricyclic Antidepress Not Detected (NotDetected) 04/07/21 19:39 Ur Phencyclidine Scrn Not Detected (NotDetected) 04/07/21 19:39 Ur Amphetamines Screen Detected (NotDetected) H 04/07/21 19:39 U Methamphetamines Scrn Not Detected (NotDetected) 04/07/21 19:39 U Benzodiazepines Scrn Not Detected (NotDetected) 04/07/21 19:39 Urine Cocaine Screen Not Detected (NotDetected) 04/07/21 19:39 U Marijuana (THC) Screen Not Detected (NotDetected) 04/07/21 19:39 Serum Alcohol <10 mg/dL 04/07/21 19:39 Patient Condition at Discharge: Stable Plan - Discharge Summary Discharge Rx Participant: No New Discharge Prescriptions: New Paliperidone IM [Invega Sustenna] 156 mg IM QMONTHLY #1 each Levothyroxine Sodium [Synthroid] 25 mcg PO DAILY@0630 30 Days tab hydrOXYzine pamoate [Vistaril] 25 mg PO BID PRN 30 Days cap PRN Reason: Anxiety Continue Echinacea 400 mg PO DAILY Cyclobenzaprine [Flexeril] 10 mg PO TID PRN PRN Reason: Pain Discontinued Dextroamphetamine/Amphetamine [Adderall] 10 mg PO DAILY@1400 PRN PRN Reason: ADHD Dextroamphetamine/Amphetamine [Adderall Xr] 20 mg PO DAILY Acetaminophen [Tylenol] 325 mg PO DAILY PRN PRN Reason: Pain hydrOXYzine pamoate [Vistaril] 50 mg PO TID PRN PRN Reason: Anxiety Levothyroxine Sodium [Synthroid] 25 mcg PO DAILY Discharge Medication List Cyclobenzaprine [Flexeril] 10 mg PO TID PRN 04/07/21 [History] Echinacea 400 mg PO DAILY 04/07/21 [History] Levothyroxine Sodium [Synthroid] 25 mcg PO DAILY@0630 30 Days tab 04/19/21 [Rx] Paliperidone IM [Invega Sustenna] 156 mg IM QMONTHLY #1 each 04/19/21 [Rx] hydrOXYzine pamoate [Vistaril] 25 mg PO BID PRN 30 Days cap 04/19/21 [Rx] Follow up Appointment(s)/Referral(s): [facility] [Outside] - 04/20/21 3:00 pm ([facility]) None,Stated [Primary Care Provider] - 1-2 days Patient Instructions/Handouts: Paliperidone (By injection), Mood Disorders (DC), Psychotic Disorder (DC) Activity/Diet/Wound Care/Special Instructions: --Per the medical provider, your liver enzymes were slightly high and need to be reassessed in 4 weeks from discharge. --Activity and diet as tolerated. Avoid the use of street drugs and alcohol. Take all medications as prescribed. When you are in need of refills on your medications please contact your medical provider and/or outpatient psychiatrist to have this done. Please go to scheduled outpatient appointment for aftercare treatment. If symptoms return or become worse, call the crisis line at and/or go to the nearest emergency room for evaluation. --Follow-up with your primary care physician in 4 weeks regarding repeat thyroid and liver function testing. Discharge Disposition: HOME SELF-CARE
== END 2021-04-19 15:30 | disposition home or self-care (01) | DRG 885 ==
LOC: EC 15:20 → 3MHU 04-08 02:22
PROVIDERS: ADMIT Psychiatry & Neurology Psychiatry; ATTEND Psychiatry & Neurology Psychiatry
DX: F25.0 Schizoaffective disorder, bipolar type (principal); D68.59 Other primary thrombophilia; M32.9 Systemic lupus erythematosus, unspecified; E03.9 Hypothyroidism, unspecified; F15.90 Other stimulant use, unspecified, uncomplicated; F90.9 Attention-deficit hyperactivity disorder, unspecified type; F41.9 Anxiety disorder, unspecified; R74.01 Elevation of levels of liver transaminase levels; H92.02 Otalgia, left ear; R68.84 Jaw pain; M25.552 Pain in left hip; Z79.890 Hormone replacement therapy; Z79.899 Other long term (current) drug therapy; Z59.0 Homelessness; Z56.0 Unemployment, unspecified; Z91.5 Personal history of self-harm; Z87.42 Personal history of other diseases of the female genital tract; Z87.448 Personal history of other diseases of urinary system; Z87.09 Personal history of other diseases of the respiratory system; Z87.39 Personal history of other diseases of the musculoskeletal system and connective tissue; Z91.42 Personal history of forced labor or sexual exploitation; Z86.2 Personal history of diseases of the blood and blood-forming organs and certain disorders involving the immune mechanism; Z98.890 Other specified postprocedural states; Z88.6 Allergy status to analgesic agent; Z88.5 Allergy status to narcotic agent; Z88.8 Allergy status to other drugs, medicaments and biological substances; Z81.8 Family history of other mental and behavioral disorders
CPT/HCPCS: 36415; 70100; 73502; 80053; 80061; 80306; 80320; 81003; 81025; 82375; 83036; 84439; 84443; 84481; 85025; 96374; 96375; 99285